=== PATIENT | male | born 1990 | race Caucasian/White ===

== ENCOUNTER → 2017-01-23 | Outpatient (CLI) | payer BC ==
[~2017-01-23] VITALS: Ht 185.4 cm; Wt 207.3 kg
[~2017-01-23] MED LIST: BNT20 PO; LANS30CA12 PO; OXYC1TAB3 PO
[2017-01-23 11:33] VITALS: BP 139/75; PULSE 110; Ht 185.4 cm; Wt 207.3 kg
== END | disposition home or self-care (01) ==
LOC: C.NEUR 11:12
PROVIDERS: ATTEND Internal Medicine Pulmonary Disease
DX: G47.33 Obstructive sleep apnea (adult) (pediatric) (principal); E66.01 Morbid (severe) obesity due to excess calories